=== PATIENT | female | born 1985 | race Caucasian/White ===

== ENCOUNTER 2016-07-21 20:58 | Emergency (ER) | payer MEDICARE | END 2016-07-21 22:48 | disposition home or self-care (01) | LOC: ER1 20:58 | DX: J02.8 Acute pharyngitis due to other specified organisms (principal); F17.200 Nicotine dependence, unspecified, uncomplicated | CPT/HCPCS: 87081; 87880; 99283 ==

== ENCOUNTER 2020-04-08 17:14 | Emergency (ER) | payer OTHER ==
[~2020-04-08 17:14] MED LIST: AMOXICILLIN875 MG PO; EXPECTORANT200 MG PO; FLONASE 0.05% N16 GM; TAMIFLU75 MG PO; ZOFRAN 4 MG TAB4 MG PO; ZOFRAN ODT 4 MG4 MG PO
[2020-04-08 20:55] LABS: HEMOGLOBIN 14.4 gm/dl (12.3-15.3); RED BLOOD COUNT 4.48 M/UL (4.00-5.10); WHITE BLOOD COUNT 12.4 K/UL (4.5-11.0)
[2020-04-08 21:09] LABS: BUN/CREATININE RATIO 22 (0-10)
[2020-04-08] MEDS ORDERED: REGLAN10 MG PO (23:10)
== END 2020-04-09 00:25 | disposition home or self-care (01) ==
LOC: ER1 17:14
PROVIDERS: Family Medicine
DX: O21.0 Mild hyperemesis gravidarum (principal); Z3A.10 10 weeks gestation of pregnancy
CPT/HCPCS: 36415; 80053; 81001; 83690; 84702; 85025; 93005; 96374; 99284

== ENCOUNTER 2020-10-31 05:30 | Inpatient (IN) | payer OTHER ==
[~2020-10-31] VITALS: Ht 162.6 cm; Wt 78.0 kg
[~2020-10-31 05:30] MED LIST changes: +REGLAN10 MG PO
[2020-10-31 07:25] LABS: HEMOGLOBIN 11.7 gm/dl (12.3-15.3); RED BLOOD COUNT 3.73 M/UL (4.00-5.10); WHITE BLOOD COUNT 9.8 K/UL (4.5-11.0)
[2020-10-31] MEDS ORDERED: SUBUTEX 8 MG TAB8 MG SL (16:38)
[2020-11-02] MEDS ORDERED: IBUPROFEN600 MG PO (15:21)
[2020-11-02] MEDS ORDERED: HYDROCODON-ACE1 EAC4 PO (15:21)
[2020-11-02] MEDS ORDERED: DOCUSATE SODIU100 MG PO (15:21)
== END 2020-11-02 17:01 | disposition home or self-care (01) | DRG 787 ==
LOC: OB 05:30
PROVIDERS: Obstetrics & Gynecology; ADMIT Obstetrics & Gynecology
PROC: 10907ZC Drainage of Amniotic Fluid, Therapeutic from Products of Conception, Via Natural or Artificial Opening (ICD-10-PCS; 2020-10-31)
PROC: 10H07YZ Insertion of Other Device into Products of Conception, Via Natural or Artificial Opening (ICD-10-PCS; 2020-10-31)
PROC: 10D00Z1 Extraction of Products of Conception, Low, Open Approach (ICD-10-PCS; principal; 2020-10-31 20:45)
DX: O62.1 Secondary uterine inertia (principal); O99.324 Drug use complicating childbirth; F11.20 Opioid dependence, uncomplicated; Z37.0 Single live birth; Z3A.39 39 weeks gestation of pregnancy; Z89.511 Acquired absence of right leg below knee; Z90.89 Acquired absence of other organs; Z98.890 Other specified postprocedural states
CPT/HCPCS: 36415; 82800; 85014; 85018; 85025; 85461; 86850; 86900; 86901; C9113; J0456; J0690; J1170; J2250; J2274; J2405; J2590; J2704; J2790; J2795; J7030; J7120; U0003